=== PATIENT | female | born 1935 | race Caucasian/White ===

== ENCOUNTER 2022-12-21 11:09 | Inpatient (IN) | payer MEDICARE, BC ==
[2022-12-21] MEDS ORDERED: Sodium Chloride 0.9% 10 ML Syringe FLUSH PRN (11:27)
[2022-12-21 11:48] LABS: BASOPHILS ABSOLUTE AUTO 0.1 x10^3/uL (0.0-0.2); BASOPHILS PERCENT AUTO 1.2 % (0.2-1.2); EOSINOPHILS ABSOLUTE AUTO 0.2 x10^3/uL (0.0-0.5); EOSINOPHILS PERCENT AUTO 5.3 % (0.0-4.0); HEMOGLOBIN 12.4 g/dL (12.0-16.0); IMMATURE GRAN ABSOLUTE AUTO 0.01 x10^3/uL (0.00-0.07); LYMPHOCYTES ABSOLUTE AUTO 0.6 x10^3/uL (1.0-4.8); LYMPHOCYTES PERCENT AUTO 13.7 % (25.0-50.0); MEAN CORPUSCULAR HEMOGLOBIN 36.3 pg (26.0-32.0); MEAN CORPUSCULAR HGB CONC 34.4 g/dL (32.0-36.0); MONOCYTES ABSOLUTE AUTO 0.6 x10^3/uL (0.0-0.8); MONOCYTES PERCENT AUTO 14.1 % (2.0-11.0); NEUTROPHILS ABSOLUTE AUTO 2.8 x10^3/uL (1.8-7.7); NEUTROPHILS PERCENT AUTO 65.5 % (50.0-80.0); PLATELET COUNT,PLT 197 x10^3/uL (130-400); RED BLOOD CELL COUNT 3.42 x10^6/uL (4.00-5.50); WHITE BLOOD CELL COUNT,WBC 4.3 x10^3/uL (4.0-10.0)
[2022-12-21] MEDS: Enoxaparin 40 MG/0.4 ML Syringe SUBCUT SCH (11:52)
[2022-12-21 11:54] LABS: MEAN CORPUSCULAR VOLUME 105.3 fL (78.0-93.0)
[2022-12-21 12:03] LABS: INR 1.2 (2.0-3.5); PROTHROMBIN TIME 13.3 SEC (9.5-12.2)
[2022-12-21 12:14] LABS: A/G RATIO 0.74; ALANINE AMINOTRANSFERASE,ALT 29 U/L (14-59); ALBUMIN 3.1 g/dL (3.4-5.0); ALKALINE PHOSPHATASE 308 U/L (46-116); ANION GAP 11.7 mmol/L (5-15); ASPARTATE AMNIOTRANSFERASE,AST 37 U/L (15-37); BILIRUBIN TOTAL 2.3 mg/dL (0.2-1.0); BLOOD UREA NITROGEN,BUN 34 mg/dL (7-18); CALCIUM 8.7 mg/dL (8.5-10.1); CARBON DIOXIDE,CO2 28 mmol/L (21-32); CHLORIDE,CL 102 mmol/L (98-107); CREATININE 1.5 mg/dL (0.55-1.02); ESTIMATED GFR 34 mL/min (>=60); GLUCOSE RANDOM 100 mg/dL (70-99); POTASSIUM,K 3.7 mmol/L (3.5-5.1); PROTEIN TOTAL,TP 7.3 g/dL (6.4-8.2); SODIUM,NA 138 mmol/L (136-145)
[2022-12-21] MEDS: Furosemide 40 MG/4 ML VIAL IV SCH ×2 (13:53→21:36)
[2022-12-21 17:51] LABS: DIGOXIN 0.73 ng/mL (0.90-2.00)
[2022-12-21] MEDS: Beta-Carotene (Vitamin A) w/Vitamin C & E plus Minerals Tab PO SCH (21:10)
[2022-12-21] MEDS: Timolol Maleate 0.5% Ophth Soln 5 ML Bottle EYELF SCH (21:10)
[2022-12-21] MEDS: Latanoprost 0.005% Ophth Soln 2.5 ML Bottle EYELF SCH (21:11)
[2022-12-21] MEDS: Triamcinolone Acetonide 0.1% Crm 15 GM Tube TOP SCH ×2 (21:12→21:30)
[2022-12-22 06:56] LABS: BASOPHILS ABSOLUTE AUTO 0.1 x10^3/uL (0.0-0.2); BASOPHILS PERCENT AUTO 1.1 % (0.2-1.2); EOSINOPHILS ABSOLUTE AUTO 0.3 x10^3/uL (0.0-0.5); EOSINOPHILS PERCENT AUTO 6.4 % (0.0-4.0); HEMATOCRIT 34.8 % (33.0-47.0); HEMOGLOBIN 11.7 g/dL (12.0-16.0); IMMATURE GRAN ABSOLUTE AUTO 0.01 x10^3/uL (0.00-0.07); LYMPHOCYTES ABSOLUTE AUTO 0.6 x10^3/uL (1.0-4.8); LYMPHOCYTES PERCENT AUTO 12.5 % (25.0-50.0); MEAN CORPUSCULAR HGB CONC 33.6 g/dL (32.0-36.0); MEAN CORPUSCULAR VOLUME 104.2 fL (78.0-93.0); MONOCYTES ABSOLUTE AUTO 0.6 x10^3/uL (0.0-0.8); MONOCYTES PERCENT AUTO 13.2 % (2.0-11.0); NEUTROPHILS ABSOLUTE AUTO 3.1 x10^3/uL (1.8-7.7); NEUTROPHILS PERCENT AUTO 66.6 % (50.0-80.0); PLATELET COUNT,PLT 188 x10^3/uL (130-400); RED BLOOD CELL COUNT 3.34 x10^6/uL (4.00-5.50); WHITE BLOOD CELL COUNT,WBC 4.7 x10^3/uL (4.0-10.0)
[2022-12-22 07:11] LABS: INR 1.2 (2.0-3.5); PROTHROMBIN TIME 12.8 SEC (9.5-12.2)
[2022-12-22 07:18] LABS: A/G RATIO 0.76; ALBUMIN 2.8 g/dL (3.4-5.0); BILIRUBIN TOTAL 1.8 mg/dL (0.2-1.0); CALCIUM 8.5 mg/dL (8.5-10.1); CREATININE 1.2 mg/dL (0.55-1.02); EST CRCL DRUG DOSING (CG) 26.12 mL/min; POTASSIUM,K 3.5 mmol/L (3.5-5.1); PROTEIN TOTAL,TP 6.5 g/dL (6.4-8.2)
[2022-12-22 07:20] LABS: ANION GAP 11.5 mmol/L (5-15)
[2022-12-22] MEDS: Digoxin 125 MCG Tab PO SCH (09:01)
[2022-12-22] MEDS: Beta-Carotene (Vitamin A) w/Vitamin C & E plus Minerals Tab PO SCH ×2 (09:01→20:04)
[2022-12-22] MEDS: Lisinopril 5 MG Tab PO SCH (09:02)
[2022-12-22] MEDS: Furosemide 40 MG/4 ML VIAL IV SCH ×2 (09:02→17:16)
[2022-12-22] MEDS: Pravastatin 20 MG Tab PO SCH (09:03)
[2022-12-22] MEDS: Atenolol 50 MG Tab PO SCH (09:03)
[2022-12-22] MEDS: Multivitamin Tab PO SCH (09:04)
[2022-12-22] MEDS: Timolol Maleate 0.5% Ophth Soln 5 ML Bottle EYELF SCH ×2 (09:04→20:05)
[2022-12-22] MEDS: Triamcinolone Acetonide 0.1% Crm 15 GM Tube TOP SCH ×2 (09:05→20:05)
[2022-12-22] MEDS: Enoxaparin 40 MG/0.4 ML Syringe SUBCUT SCH (12:34)
[2022-12-22] MEDS: Spironolactone 25 MG Tab PO SCH (12:34)
[2022-12-22] MEDS: Latanoprost 0.005% Ophth Soln 2.5 ML Bottle EYELF SCH (20:05)
[2022-12-23 07:19] LABS: BASOPHILS ABSOLUTE AUTO 0.1 x10^3/uL (0.0-0.2); BASOPHILS PERCENT AUTO 1.1 % (0.2-1.2); EOSINOPHILS ABSOLUTE AUTO 0.4 x10^3/uL (0.0-0.5); EOSINOPHILS PERCENT AUTO 8.2 % (0.0-4.0); HEMATOCRIT 34.1 % (33.0-47.0); HEMOGLOBIN 11.7 g/dL (12.0-16.0); IMMATURE GRAN ABSOLUTE AUTO 0.01 x10^3/uL (0.00-0.07); LYMPHOCYTES ABSOLUTE AUTO 0.7 x10^3/uL (1.0-4.8); LYMPHOCYTES PERCENT AUTO 14.2 % (25.0-50.0); MEAN CORPUSCULAR HEMOGLOBIN 35.7 pg (26.0-32.0); MEAN CORPUSCULAR HGB CONC 34.3 g/dL (32.0-36.0); MONOCYTES ABSOLUTE AUTO 0.7 x10^3/uL (0.0-0.8); MONOCYTES PERCENT AUTO 15.3 % (2.0-11.0); NEUTROPHILS ABSOLUTE AUTO 2.8 x10^3/uL (1.8-7.7); PLATELET COUNT,PLT 181 x10^3/uL (130-400); RED BLOOD CELL COUNT 3.28 x10^6/uL (4.00-5.50); WHITE BLOOD CELL COUNT,WBC 4.6 x10^3/uL (4.0-10.0)
[2022-12-23 07:32] LABS: CALCIUM 8.7 mg/dL (8.5-10.1); CREATININE 1.1 mg/dL (0.55-1.02); EST CRCL DRUG DOSING (CG) 28.5 mL/min; POTASSIUM,K 3.3 mmol/L (3.5-5.1)
[2022-12-23 07:35] LABS: ANION GAP 12.3 mmol/L (5-15)
[2022-12-23] MEDS: Pravastatin 20 MG Tab PO SCH (08:52)
[2022-12-23] MEDS: Spironolactone 25 MG Tab PO SCH (08:53)
[2022-12-23] MEDS: Multivitamin Tab PO SCH (08:53)
[2022-12-23] MEDS: Beta-Carotene (Vitamin A) w/Vitamin C & E plus Minerals Tab PO SCH ×2 (08:54→20:01)
[2022-12-23] MEDS: Lisinopril 5 MG Tab PO SCH (08:54)
[2022-12-23] MEDS: Potassium Chloride 10 MEQ Tab.ER PO SCH (08:54)
[2022-12-23] MEDS: Atenolol 50 MG Tab PO SCH (08:55)
[2022-12-23] MEDS: Furosemide 40 MG/4 ML VIAL IV SCH ×4 (08:55→19:36)
[2022-12-23] MEDS: Digoxin 125 MCG Tab PO SCH (08:55)
[2022-12-23] MEDS: Timolol Maleate 0.5% Ophth Soln 5 ML Bottle EYELF SCH ×2 (09:03→20:00)
[2022-12-23] MEDS: Triamcinolone Acetonide 0.1% Crm 15 GM Tube TOP SCH ×2 (09:04→20:01)
[2022-12-23] MEDS: Enoxaparin 40 MG/0.4 ML Syringe SUBCUT SCH (11:36)
[2022-12-23] MEDS ORDERED: Triamcinolone Acetonide 0.1% Crm 15 GM Tube TOP SCH (18:30)
[2022-12-23] MEDS: Latanoprost 0.005% Ophth Soln 2.5 ML Bottle EYELF SCH (20:00)
[2022-12-24 07:01] LABS: BASOPHILS PERCENT AUTO 0.9 % (0.2-1.2); EOSINOPHILS ABSOLUTE AUTO 0.4 x10^3/uL (0.0-0.5); HEMATOCRIT 34.2 % (33.0-47.0); HEMOGLOBIN 11.5 g/dL (12.0-16.0); IMMATURE GRAN ABSOLUTE AUTO 0.01 x10^3/uL (0.00-0.07); LYMPHOCYTES ABSOLUTE AUTO 0.8 x10^3/uL (1.0-4.8); LYMPHOCYTES PERCENT AUTO 16.7 % (25.0-50.0); MEAN CORPUSCULAR HEMOGLOBIN 35.3 pg (26.0-32.0); MEAN CORPUSCULAR HGB CONC 33.6 g/dL (32.0-36.0); MEAN CORPUSCULAR VOLUME 104.9 fL (78.0-93.0); MONOCYTES ABSOLUTE AUTO 0.6 x10^3/uL (0.0-0.8); MONOCYTES PERCENT AUTO 13.9 % (2.0-11.0); NEUTROPHILS ABSOLUTE AUTO 2.8 x10^3/uL (1.8-7.7); NEUTROPHILS PERCENT AUTO 60.3 % (50.0-80.0); PLATELET COUNT,PLT 184 x10^3/uL (130-400); RED BLOOD CELL COUNT 3.26 x10^6/uL (4.00-5.50); WHITE BLOOD CELL COUNT,WBC 4.6 x10^3/uL (4.0-10.0)
[2022-12-24 07:21] LABS: A/G RATIO 0.7; ALBUMIN 2.6 g/dL (3.4-5.0); BILIRUBIN TOTAL 1.7 mg/dL (0.2-1.0); CALCIUM 8.6 mg/dL (8.5-10.1); CREATININE 0.9 mg/dL (0.55-1.02); EST CRCL DRUG DOSING (CG) 34.83 mL/min; PROTEIN TOTAL,TP 6.3 g/dL (6.4-8.2)
[2022-12-24] MEDS: Beta-Carotene (Vitamin A) w/Vitamin C & E plus Minerals Tab PO SCH ×2 (08:17→20:43)
[2022-12-24] MEDS: Lisinopril 5 MG Tab PO SCH (08:17)
[2022-12-24] MEDS: Potassium Chloride 10 MEQ Tab.ER PO SCH (08:17)
[2022-12-24] MEDS: Spironolactone 25 MG Tab PO SCH ×2 (08:17→09:01)
[2022-12-24] MEDS: Atenolol 50 MG Tab PO SCH (08:18)
[2022-12-24] MEDS: Digoxin 125 MCG Tab PO SCH (08:18)
[2022-12-24] MEDS: Pravastatin 20 MG Tab PO SCH (08:19)
[2022-12-24] MEDS: Multivitamin Tab PO SCH (08:19)
[2022-12-24] MEDS: Furosemide 40 MG/4 ML VIAL IV SCH (08:21)
[2022-12-24] MEDS ORDERED: Furosemide 20 MG/2 ML VIAL IV ONE (08:28)
[2022-12-24] MEDS: Timolol Maleate 0.5% Ophth Soln 5 ML Bottle EYELF SCH ×2 (08:29→20:43)
[2022-12-24] MEDS: Triamcinolone Acetonide 0.1% Crm 15 GM Tube TOP SCH ×3 (08:30→20:43)
[2022-12-24] MEDS ORDERED: Potassium Chloride 10 MEQ Tab.ER PO ONE (08:45)
[2022-12-24] MEDS ORDERED: Potassium Chloride 10 MEQ Tab.ER PO SCH ×2 (09:00→13:00)
[2022-12-24] MEDS: Enoxaparin 40 MG/0.4 ML Syringe SUBCUT SCH (11:48)
[2022-12-24] MEDS: Furosemide 100 MG/10 ML SDV IV SCH (13:58)
[2022-12-24 14:10] LABS: CALCIUM 8.6 mg/dL (8.5-10.1); CREATININE 1.1 mg/dL (0.55-1.02); EST CRCL DRUG DOSING (CG) 28.5 mL/min
[2022-12-24] MEDS: Latanoprost 0.005% Ophth Soln 2.5 ML Bottle EYELF SCH (20:43)
[2022-12-25 05:37] VITALS: BP 125/77
[2022-12-25] MEDS: Pravastatin 20 MG Tab PO SCH (08:51)
[2022-12-25] MEDS: Beta-Carotene (Vitamin A) w/Vitamin C & E plus Minerals Tab PO SCH (08:52)
[2022-12-25] MEDS: Spironolactone 25 MG Tab PO SCH (08:52)
[2022-12-25] MEDS: Multivitamin Tab PO SCH (08:52)
[2022-12-25] MEDS: Lisinopril 5 MG Tab PO SCH (08:53)
[2022-12-25] MEDS: Digoxin 125 MCG Tab PO SCH (08:53)
[2022-12-25] MEDS: Furosemide 100 MG/10 ML SDV IV SCH ×2 (08:53→13:11)
[2022-12-25] MEDS: Triamcinolone Acetonide 0.1% Crm 15 GM Tube TOP SCH ×2 (08:57→12:35)
[2022-12-25] MEDS: Timolol Maleate 0.5% Ophth Soln 5 ML Bottle EYELF SCH (08:58)
[2022-12-25] MEDS ORDERED: Potassium Chloride 10 MEQ Tab.ER PO SCH (09:00)
[2022-12-25] MEDS ORDERED: Metoprolol Succinate 50 MG Tab.ER PO SCH (09:00)
[2022-12-25 10:41] VITALS: PULSE 66
[2022-12-25] MEDS: Enoxaparin 40 MG/0.4 ML Syringe SUBCUT SCH (12:25)
== END 2022-12-25 15:03 | disposition home or self-care (01) | DRG 291 ==
LOC: VM.MS 11:09
PROVIDERS: ADMIT Internal Medicine; ATTEND Internal Medicine
DX: I11.0 Hypertensive heart disease with heart failure (principal); I50.33 Acute on chronic diastolic (congestive) heart failure; R18.8 Other ascites; N17.9 Acute kidney failure, unspecified; I27.20 Pulmonary hypertension, unspecified; I08.3 Combined rheumatic disorders of mitral, aortic and tricuspid valves; I48.0 Paroxysmal atrial fibrillation; E78.5 Hyperlipidemia, unspecified; E87.6 Hypokalemia; R73.01 Impaired fasting glucose; Z98.890 Other specified postprocedural states; Z79.899 Other long term (current) drug therapy
CPT/HCPCS: 36415; 51702; 71046; 80048; 80053; 80162; 82248; 83735; 83880; 84443; 84484; 85025; 85610; 93005; 97165-GO; A9270-GY; J1650; J1940; J3490